=== PATIENT | female | born 1965 | race Two or more races ===

== ENCOUNTER 2016-10-25 12:30 | Emergency (ER) | payer MEDICAID, SELFPAY ==
[~2016-10-25] VITALS: Ht 152.4 cm; Wt 79.1 kg
[2016-10-25] MEDS ORDERED: SYNT50TA PO (12:41)
[2016-10-25 14:24] LABS: BASO # 0.1 K/mm3 (0.0-0.2); BASO % 1.5 % (0.0-1.0); EOS # 0.2 K/mm3 (0.0-0.50); EOS % 2.4 % (0.0-3.0); LARGE UNSTAINED CELL # 0.2 K/mm3 (0.0-0.4); LARGE UNSTAINED CELL % 2.3 % (0.0-4.0); LYMPH # 2.2 K/mm3 (1.5-4.5); LYMPH % 32.9 % (24.0-44.0); MEAN CORPUSCULAR HEMOGLOBIN 30.1 pg (27.0-33.0); MEAN CORPUSCULAR HGB CONC 33.9 g/dl (32.0-36.5); MEAN CORPUSCULAR VOLUME 88.7 fl (80.0-96.0); MONO # 0.3 K/mm3 (0.0-0.8); NEUTROPHILS # 3.5 K/mm3 (1.8-7.7); NEUTROPHILS % 55.8 % (36.0-66.0); PLATELET COUNT, AUTOMATED 200 k/mm3 (150-450); WHITE BLOOD COUNT 6.3 K/mm3 (4.0-10.0)
[2016-10-25 14:57] LABS: ANION GAP 5 MEQ/L (8-16); BLOOD UREA NITROGEN 14 MG/DL (7-18); CARBON DIOXIDE LEVEL 27 MEQ/L (21-32); CHLORIDE LEVEL 106 MEQ/L (98-107); CREATININE FOR GFR 0.73 MG/DL (0.55-1.02); GLOMERULAR FILTRATION RATE > 60.0 (>58); GLUCOSE, FASTING 88 MG/DL (70-105); SODIUM LEVEL 138 MEQ/L (136-145)
[2016-10-25] MEDS ORDERED: IBUP-1022 PO (15:22)
--- NOTE | 2016-10-25 15:29 | REP ---
Pelvic sonography: History: Pelvic pain. History of ablation. Findings: Transabdominal and transvaginal scanning are performed. Uterine dimensions are normal at 9.2 x 3.8 x 6.8 cm. Uterus is anteverted. Endometrial echo is 0.7 cm thick. A subseptate uterine morphology is suspected. Transabdominal scan demonstrates a 3.4 x 3.1 x 2.5 cm pedunculated fibroid to the left of the uterus and a posterior fibroid measuring 1.6 cm. Uterine texture is heterogeneous. Neither ovary could be identified transabdominally or transvaginally. No adnexal mass, cyst or free fluid is seen. Impression: Two fibroids seen in the uterus, largest is a pedunculated fibroid measuring 3.4 cm. Neither ovary could be directly visualized. No other abnormality. Signed by Janes Hanna MD 10/25/2016 06:21 P
[2016-10-25 15:38] VITALS: BP 130/74
== END 2016-10-25 15:40 | disposition home or self-care (01) ==
LOC: M ED 12:30
DX: D25.9 Leiomyoma of uterus, unspecified (principal)